=== PATIENT | female | born 1960 | race Two or more races ===

== ENCOUNTER 2016-12-14 09:01 | Emergency (ER) | payer OTHER ==
[~2016-12-14] VITALS: Ht 162.6 cm; Wt 77.1 kg
[~2016-12-14 09:01] MED LIST: BENA20TA4 PO; CHOL20004 PO; CYCL-181 PO; HYDR10TA35 PO; LEVO150T68; NORTRIPTYLINE PO; TRAM-297 PO
[2016-12-14 10:08] VITALS: BP 159/100
== END 2016-12-14 10:25 | disposition home or self-care (01) ==
LOC: ER 09:05
DX: F41.9 Anxiety disorder, unspecified (principal); I10 Essential (primary) hypertension; E07.9 Disorder of thyroid, unspecified; Z90.49 Acquired absence of other specified parts of digestive tract; F17.210 Nicotine dependence, cigarettes, uncomplicated

== ENCOUNTER 2017-02-05 12:17 | Emergency (ER) | payer OTHER ==
[~2017-02-05] VITALS: Ht 162.6 cm; Wt 90.7 kg
[2017-02-05 12:42] VITALS: BP 151/95
[2017-02-05] MEDS ORDERED: clonazePAM 0.5 MG TAB PO ONE (13:30)
== END 2017-02-05 13:59 | disposition home or self-care (01) ==
LOC: ER 12:29
DX: F41.1 Generalized anxiety disorder (principal); I10 Essential (primary) hypertension; E07.9 Disorder of thyroid, unspecified; F17.210 Nicotine dependence, cigarettes, uncomplicated; F31.9 Bipolar disorder, unspecified; Z76.0 Encounter for issue of repeat prescription; Z90.49 Acquired absence of other specified parts of digestive tract; Z90.710 Acquired absence of both cervix and uterus

== ENCOUNTER 2017-03-29 07:56 | Emergency (ER) | payer MEDICAID, OTHER ==
[~2017-03-29] VITALS: Ht 162.6 cm; Wt 99.8 kg
[2017-03-29] MEDS ORDERED: CLON2TAB3 PO (08:12)
[2017-03-29 08:15] VITALS: BP 155/97
[2017-03-29] MEDS ORDERED: clonazePAM 0.5 MG TAB PO ONE (08:30)
== END 2017-03-29 08:55 | disposition home or self-care (01) ==
LOC: ER 07:56
DX: F41.1 Generalized anxiety disorder (principal); F31.9 Bipolar disorder, unspecified; I10 Essential (primary) hypertension; E89.0 Postprocedural hypothyroidism; Z76.0 Encounter for issue of repeat prescription; Z98.84 Bariatric surgery status; Z90.49 Acquired absence of other specified parts of digestive tract; Z90.710 Acquired absence of both cervix and uterus